=== PATIENT | male | born 1990 | race American Indian/Alaskan Native ===

== ENCOUNTER 2020-12-20 12:01 | Emergency (ER) | payer SELFPAY ==
[~2020-12-20] VITALS: Ht 180.3 cm; Wt 104.3 kg
[2020-12-20] MEDS ORDERED: PENVK500 PO (13:32)
== END 2020-12-20 13:38 | disposition home or self-care (01) ==
LOC: ER 12:01
DX: K02.9 Dental caries, unspecified (principal); K04.01 Reversible pulpitis
CPT/HCPCS: 99282; A9270